=== PATIENT | female | born 1925 | race Caucasian/White ===

== ENCOUNTER 2017-06-09 13:55 | Inpatient (IN) | payer MEDICARE ==
[~2017-06-09] VITALS: Ht 157.5 cm; Wt 61.5 kg
[~2017-06-09 13:55] MED LIST: ASPI81TA44 PO; LISI10TA PO; LISI10TA2 PO
--- NOTE | 2017-06-09 14:36 | EKG ---
[facility] [address] [place] [address] Test Date: 2017-06-09 Test Time: 14:04:50 Pat Name: ALY LOUIS Department: Room: Gender: F Art Gilder: : 1925 Requested By: SUZETTE CARLOS Order Number: [id number] Reading MD: Kwame Moura MD Measurements Intervals Otis Rate: 77 P: 47 UT: 148 QRS: 34 QRSD: 100 T: 24 QT: 408 QTc: 464 Interpretive Statements SINUS RHYTHM Electronically Signed On 06-09-2017 16:08:17 RECORDING STUDIO SET UP WORKER by Kwame Moura MD
[2017-06-09 14:37] LABS: BASO # 0.1 x10^3/uL (0.0-0.2); BASO % 1 % (0-3); EOS % 0 % (0-3); HEMATOCRIT 40.9 % (36.0-47.0); HEMOGLOBIN 13.5 g/dL (12.0-15.5); LYMPH % 6 % (24-48); MEAN CORPUSCULAR HEMOGLOBIN 30 pg (25-35); MEAN CORPUSCULAR HGB CONC 33 g/dL (31-37); MEAN CORPUSCULAR VOLUME 90 fL (79-100); MONO % 6 % (0-9); NEUT % 87 % (31-73); PLATELET COUNT 244 x10^3/uL (140-400); RED BLOOD COUNT 4.56 x10^6/uL (3.50-5.40); RED CELL DISTRIBUTION WIDTH 14.1 % (11.5-14.5); WHITE BLOOD COUNT 15.3 x10^3/uL (4.0-11.0)
[2017-06-09 14:47] LABS: CALCIUM 8.9 mg/dL (8.5-10.1); CREATININE 0.9 mg/dL (0.6-1.0); POTASSIUM 3.2 mmol/L (3.5-5.1)
[2017-06-09 14:55] LABS: ALBUMIN 3.4 g/dL (3.4-5.0); ALBUMIN/GLOBULIN RATIO 0.8 (1.0-1.7); TOTAL BILIRUBIN 0.7 mg/dL (0.2-1.0); TOTAL PROTEIN 7.7 g/dL (6.4-8.2)
[2017-06-09 14:58] LABS: PLT ESTIMATE ADEQUATE (ADEQUATE)
[2017-06-09] MEDS ORDERED: CONTRAST GIVEN MC PRN (15:00)
[2017-06-09] MEDS ORDERED: IOHEXOL 300 MG/ML 100ML VIAL. IV ONE (15:00)
--- NOTE | 2017-06-09 15:03 | RAD ---
Portable chest, 06/09/2017: History: Chest pain The cardiac margins are poorly defined due to prominent epicardial fat pads and/or scarring. The heart appears to be at the upper limits of normal in size. The pulmonary vascularity is normal. There are linear basilar opacities compatible with atelectasis and/or scarring. The upper lung monique are clear. No definite pleural fluid is seen. IMPRESSION: 1. Mild cardiomegaly. 2. Mild bibasilar scarring and/or atelectasis.
--- NOTE | 2017-06-09 15:19 | PHYS DOC ---
Past Medical History Past Medical History: Depression, Hypertension Past Surgical History: Tonsillectomy, Other Additional Past Surgical Histo: LEFT BREAST BIOPSY, VERICOSE VEIN REMOVAL Additional Information: quit 40-50 years ago Alcohol Use: None Drug Use: None Adult General Chief Complaint Chief Complaint: CHEST PAIN HPI HPI Patient is a 89 year old F who presents with chest pain central nonradiating for the past day. Patient has no history of heart attack stents or bypass surgery. Patient states nothing increases or decreases the chest pain. Patient has history of hypertension with no history of smoking. Patient denies any shortness breath. Patient denies any nausea/vomiting/diarrhea. Review of Systems Review of Systems GEN: Denies fevers, chills, sweats HEENT: Denies blurred vision, sore throat CV: Chest pain RESP: Denies shortness of air, cough GI: Denies n/v/d NEURO: Denies confusion, dizziness MSK: Denies weakness, joint pain/swelling All other systems were reviewed and found to be within normal limits, except as documented in this note. Current Medications Current Medications Current Medications Medications (Trade) Dose Ordered Sig/Priscila Start Time Stop Time Status Last Admin Dose Admin Aspirin (Children'S Aspirin) 324 mg 1X ONCE 06/09/17 15:30 06/09/17 15:31 DC 06/09/17 15:36 324 MG Fentanyl Citrate (Fentanyl 2ml Vial) 50 mcg 1X ONCE 06/09/17 15:30 06/09/17 15:31 DC 06/09/17 15:37 50 MCG Info (Do NOT chart on this entry -- for MONITORING) 1 each PRN DAILY PRN 06/09/17 15:00 06/11/17 14:59 Iohexol (Omnipaque 300 Mg/ml) 75 ml 1X ONCE 06/09/17 15:00 06/09/17 15:01 DC 06/09/17 15:03 75 ML Morphine Sulfate 4 mg PRN Q2HR PRN 06/09/17 17:00 06/10/17 16:59 UNV Ondansetron HCl (Zofran) 4 mg PRN Q8HRS PRN 06/09/17 17:00 06/10/17 16:59 UNV Allergies Allergies Allergies Coded Allergies Type Severity Reaction Last Updated Verified No Known Drug Allergies 05/26/15 No Physical Exam Physical Exam GEN.: No apparent distress. Alert and oriented. HEENT: Head is normocephalic, atraumatic NECK: Supple. LUNGS: CTAB. HEART: RRR, S1, S2 present. Peripheral pulses intact ABDOMEN: Soft, nontender. Positive bowel sounds. EXTREMITIES: Without any cyanosis. NEUROLOGIC: Normal speech, normal tone PSYCHIATRIC: Normal affect, normal mood. SKIN: No ulcerations Current Patient Data Vital Signs Vital Signs Date Time Temp Pulse Resp B/P (MAP) Pulse Ox O2 Delivery O2 Flow Rate FiO2 06/09/17 16:25 70 20 113/56 (75) 93 Nasal Cannula 06/09/17 15:55 2.0 06/09/17 14:00 98.8 98.8 Lab Values Laboratory Tests Test 06/09/17 14:25 White Blood Count 15.3 x10^3/uL (4.0-11.0) H Red Blood Count 4.56 x10^6/uL (3.50-5.40) Hemoglobin 13.5 g/dL (12.0-15.5) Hematocrit 40.9 % (36.0-47.0) Mean Corpuscular Volume 90 fL (79-100) Mean Corpuscular Hemoglobin 30 pg (25-35) Mean Corpuscular Hemoglobin Concent 33 g/dL (31-37) Red Cell Distribution Width 14.1 % (11.5-14.5) Platelet Count 244 x10^3/uL (140-400) Neutrophils (%) (Auto) 87 % (31-73) H Lymphocytes (%) (Auto) 6 % (24-48) L Monocytes (%) (Auto) 6 % (0-9) Eosinophils (%) (Auto) 0 % (0-3) Basophils (%) (Auto) 1 % (0-3) Neutrophils # (Auto) 13.3 x10^3uL (1.8-7.7) H Lymphocytes # (Auto) 1.0 x10^3/uL (1.0-4.8) Monocytes # (Auto) 1.0 x10^3/uL (0.0-1.1) Eosinophils # (Auto) 0.0 x10^3/uL (0.0-0.7) Basophils # (Auto) 0.1 x10^3/uL (0.0-0.2) Segmented Neutrophils % 67 % (35-66) H Band Neutrophils % 19 % (0-9) H Lymphocytes % 3 % (24-48) L Atypical Lymphocytes % (Manual) 5 % (0-0) H Monocytes % 6 % (0-10) Platelet Estimate Adequate (ADEQUATE) Giant Platelets Few Sodium Level 138 mmol/L (136-145) Potassium Level 3.2 mmol/L (3.5-5.1) L Chloride Level 101 mmol/L (98-107) Carbon Dioxide Level 28 mmol/L (21-32) Anion Gap 9 (6-14) Blood Urea Nitrogen 26 mg/dL (7-20) H Creatinine 0.9 mg/dL (0.6-1.0) Estimated GFR (Cockcroft-Gault) 59.0 BUN/Creatinine Ratio 29 (6-20) H Glucose Level 151 mg/dL (70-99) H Calcium Level 8.9 mg/dL (8.5-10.1) Total Bilirubin 0.7 mg/dL (0.2-1.0) Aspartate Amino Transferase (AST) 14 U/L (15-37) L Alanine Aminotransferase (ALT) 17 U/L (14-59) Alkaline Phosphatase 79 U/L (46-116) Troponin I Quantitative < 0.017 ng/mL (0.000-0.055) Total Protein 7.7 g/dL (6.4-8.2) Albumin 3.4 g/dL (3.4-5.0) Albumin/Globulin Ratio 0.8 (1.0-1.7) L Laboratory Tests 06/09/17 14:25 Laboratory Tests 06/09/17 14:25 EKG EKG 1407: EKG shows normal sinus rhythm rate of 77 no STEMI[] Radiology/Procedures Radiology/Procedures Chest x-ray NAD CTA of the chest: Impression: 1. Nondiagnostic evaluation of the subsegmental pulmonary arteries due to motion. No central or major segmental pulmonary artery filling defect to suggest pulmonary embolism. 2. Moderate generalized cardiomegaly. 3. Mild T7 superior endplate compression deformity, age indeterminate though likely chronic without bony retropulsion. Correlation with point tenderness is recommended. 4. Small hiatal hernia. [] Course & Med Decision Making Course & Med Decision Making Pertinent Labs and Imaging studies reviewed. (See chart for details) ED course: Patient was seen and examined emergency room cardiac workup was ordered along with a CTA of the chest 1640: On reexamination patient still having centralized chest pain rating to her back therefore given her persistent chest pain will admit her to the hospital for further evaluation and management. 1650: Discussed CC/HP/PMH with Dr. Winter and recommends admit MDM: After reviewing the chart, CC/HPI/PMH, physical exam, [lab results], [ radiological results], I do not believe the patient having a STEMI, PE, thoracic aortic dissection however given the patient's age and persistent chest pain will admit the hospital for further evaluation and management. [] Dragon Disclaimer Dragon Disclaimer This electronic medical record was generated, in whole or in part, using a voice recognition dictation system. Departure Departure Impression: Primary Impression: Chest pain Disposition: ADMITTED INPATIENT Admitting Physician: Megaan Winter Condition: STABLE Referrals: MADELIN PICKENS Jr, MD (PCP) SUZETTE CARLOS DO Jun 09, 2017 15:19
[2017-06-09] MEDS ORDERED: fentaNYL PF VIAL 100 MCG/2 ML VIAL IV ONE (15:30)
[2017-06-09] MEDS ORDERED: ASPIRIN CHEWABLE 81 MG TABLET. PO ONE (15:30)
--- NOTE | 2017-06-09 16:05 | RAD ---
CTA chest 06/09/2017 Clinical indication: Chest pain. Technique: Multiple CTA images of the chest were obtained following the intravenous administration of 75 mL Omnipaque 300. PQRS Compliance Statement: One or more of the following individualized dose reduction techniques were utilized for this examination: 1. Automated exposure control 2. Adjustment of the mA and/or kV according to patient size 3. Use of iterative reconstruction technique Findings: CTA chest: There is moderate generalized cardiomegaly without significant pericardial effusion. The thoracic aorta is normal in caliber with mild scattered atheromatous disease. The subsegmental pulmonary arteries are nondiagnostic for evaluation due to motion. No central or major segmental pulmonary artery filling defect. No axillary, mediastinal or hilar lymphadenopathy. The central airways are patent. There is mild central perihilar bronchial thickening. There is mild linear atelectasis in the dependent lower lobes. No pleural effusion or pneumothorax. No suspicious noncalcified pulmonary nodules, however evaluation of the parenchyma is limited due to motion. There are no destructive osseous lesions. There is a mild T7 anterior superior compression deformity with no significant bony retropulsion. There is a right pericardial cystic structure measuring 3.8 x 1.9 cm series 3/image 71 may represent benign pericardial cyst or focal fluid in a pericardial recess. There is a loop recorder device in the subcutaneous tissues of the anterior left thorax. There is a small hiatal hernia. Limited images of the upper abdomen: 0.8 cm hypodensity at the hepatic dome, too small to characterize. Impression: 1. Nondiagnostic evaluation of the subsegmental pulmonary arteries due to motion. No central or major segmental pulmonary artery filling defect to suggest pulmonary embolism. 2. Moderate generalized cardiomegaly. 3. Mild T7 superior endplate compression deformity, age indeterminate though likely chronic without bony retropulsion. Correlation with point tenderness is recommended. 4. Small hiatal hernia.
[2017-06-09] MEDS ORDERED: MORPHINE SULFATE 4 MG/ML DISP.SYRIN. IV PRN (17:00)
[2017-06-09] MEDS ORDERED: NITROGLYCERIN SUBLINGUAL 0.4 MG BOTTLE OF 25. SL PRN (17:00)
[2017-06-09] MEDS ORDERED: ONDANSETRON PF 4 MG/2 ML VIAL. IV PRN (17:00)
[2017-06-09] MEDS ORDERED: ACETAMINOPHEN 325 MG TABLET. PO PRN (17:00)
[2017-06-09 18:23] VITALS: BP 131/60
[2017-06-09] MEDS ORDERED: DONE5TAB7 PO ×2 (18:27→18:30)
[2017-06-09] MEDS ORDERED: LISI1TAB3 PO (18:27)
[2017-06-09] MEDS ORDERED: ESCITALOPRAM OXA5 M1 PO (18:27)
[2017-06-09] MEDS ORDERED: guaiFENesin DM 200MG/20MG 10 ML SYRUP PO PRN (18:30)
--- NOTE | 2017-06-09 18:35 | PDOC1 ---
History and Physical Date of Admission Date of Admission DATE: 06/09/17 TIME: 18:28 Identification/Chief Complaint Chief Complaint chest pain Problems: Source Source: Caregiver, Chart review, Patient History of Present Illness History of Present Illness Patient is a 89 year old admit w/ acute chest pain central nonradiating for the past day. She tells me she has seen Dr. Shelton before, and has and inplanted device for CV monitoring,/ No fever or chills or sweats or cough, no travel Patient has history of hypertension with no history of smoking. Patient denies any shortness breath. Patient denies any nausea/vomiting/diarrhea. her on hospice a few weeks ago, and she feels like she has been under a lot of stress. Past Medical History Cardiovascular: HTN Hepatobiliary: Cirrhosis Psych: Depression Musculoskeletal: low back pain Past Surgical History Past Surgical History: Other Family History Family History: No Significant Social History Smoke: No ALCOHOL: none Drugs: None Current Problem List Problem List Problems Medical Problems: (1) Chest pain Status: Acute Problems: Current Medications Current Medications Current Medications Iohexol (Omnipaque 300 Mg/ml) 75 ml 1X ONCE IV Last administered on 15:03; Start 06/09/17 at 15:00; Stop 06/09/17 at 15:01; Status DC Info (Do NOT chart on this entry -- for MONITORING) 1 each PRN DAILY PRN MC SEE COMMENTS; Start 06/09/17 at 15:00; Stop 06/11/17 at 14:59 Aspirin (Children'S Aspirin) 324 mg 1X ONCE PO Last administered on 15:36; Start 06/09/17 at 15:30; Stop 06/09/17 at 15:31; Status DC Fentanyl Citrate (Fentanyl 2ml Vial) 50 mcg 1X ONCE IV Last administered on 15:37; Start 06/09/17 at 15:30; Stop 06/09/17 at 15:31; Status DC Ondansetron HCl (Zofran) 4 mg PRN Q8HRS PRN IV NAUSEA/VOMITING; Start at 17:00; Stop 06/10/17 at 16:59 Morphine Sulfate 4 mg PRN Q2HR PRN IV PAIN; Start 06/09/17 at 17:00; Stop at 16:59 Acetaminophen (Tylenol) 650 mg PRN Q4HRS PRN PO FEVER; Start 06/09/17 at 17:00 ; Stop 06/10/17 at 16:59 Nitroglycerin (Nitrostat) 0.4 mg PRN Q5MIN PRN SL CHEST PAIN; Start 06/09/17 at 17:00; Stop 06/10/17 at 16:59 Active Scripts Active Reported Lisinopril-Hctz 10-12.5 Mg Tab (Lisinopril/Hydrochlorothiazide) 1 Each Tablet 1 Tab PO DAILY Donepezil Hcl 5 Mg Tablet 1 Tab PO DAILY Escitalopram Oxalate 5 Mg Tablet 5 Mg PO DAILY Allergies Allergies: Coded Allergies: No Known Drug Allergies (Unverified , 05/26/15) ROS General: YES: Fatigue, Malaise, No: Chills, Night Sweats, Appetite, Other PSYCHOLOGICAL ROS: YES: Depression, Irritablity, Memory difficulties, Sleep disturbances Eyes: No Blurry vision, No Decreased vision, No Double vision, No Dry eyes, No Excessive tearing, No Eye Pain, No Itchy Eyes, No Loss of vision, No Photophobia , No Scotomata, No Uses contacts, No Uses glasses, No Other HEENT: No: Heacaches, Visual Changes, Hearing change, Nasal congestion, Nasal discharge, Oral lesions, Sinus pain, Sore Throat, Epistaxis, Sneezing, Snoring, Tinnitus, Vertigo, Vocal changes, Other Respiratory: YES: Pleuritic Pain, No: Cough, Hemoptysis, Orthopnea, Shortness of breath, SOB with excertion, Sputum Changes, Stridor, Tachypnea, Wheezing, Other Cardiovascular: yes Chest Pain, No Palpitations, No Orthopnea, No Paroxysmal Noc. Dyspnea, No Edema, No Lt Headedness, No Other Gastrointestinal: No Nausea, No Vomiting, No Abdominal Pain, No Diarrhea, No Constipation, No Melena, No Hematochezia, No Other Genitourinary: No Dysuria, No Frequency, No Incontinence, No Hematuria, No Retention, No Discharge, No Urgency, No Pain, No Flank Pain, No Other, No , No , No , No , No , No , No Musculoskeletal: Yes Joint Stiffness, No Gait Disturbance, No Joint Pain, No Joint Swelling, No Muscle Pain, No Muscular Weakness, No Pain In:, No Swelling In:, No Other Neurological: No Behavorial Changes, No Bowel/Bladder ControlChng, No Confusion , No Dizziness, No Gait Disturbance, No Headaches, No Impaired Coord/balance, No Memory Loss, No Numbness/Tingling, No Seizures, No Speech Problems, No Tremors, No Visual Changes, No Weakness, No Other Skin: Yes Dry Skin, No Eczema, No Hair Changes, No Lumps, No Mole Changes, No Mottling, No Nail Changes, No Pruritus, No Rash, No Skin Lesion Changes, No Other, No Acne Physical Exam General: Alert, No acute distress HEENT: PERRLA Lungs: Clear to auscultation, Normal air movement Heart: no gallops Abdomen: Normal bowel sounds, Soft Rectal Exam: not examined Extremities: No cyanosis, No edema Skin: No rashes Neuro: Normal tone, Sensation intact, Cranial nerves 3-12 NL Psych/Mental Status: Mood NL Vitals Vitals Vital Signs Date Time Temp Pulse Resp B/P (MAP) Pulse Ox O2 Delivery O2 Flow Rate FiO2 06/09/17 18:23 98.2 81 18 131/60 (83) 96 Room Air 98.2 06/09/17 18:17 2.0 Labs Labs Laboratory Tests Test 06/09/17 14:25 White Blood Count 15.3 x10^3/uL (4.0-11.0) Red Blood Count 4.56 x10^6/uL (3.50-5.40) Hemoglobin 13.5 g/dL (12.0-15.5) Hematocrit 40.9 % (36.0-47.0) Mean Corpuscular Volume 90 fL (79-100) Mean Corpuscular Hemoglobin 30 pg (25-35) Mean Corpuscular Hemoglobin Concent 33 g/dL (31-37) Red Cell Distribution Width 14.1 % (11.5-14.5) Platelet Count 244 x10^3/uL (140-400) Neutrophils (%) (Auto) 87 % (31-73) Lymphocytes (%) (Auto) 6 % (24-48) Monocytes (%) (Auto) 6 % (0-9) Eosinophils (%) (Auto) 0 % (0-3) Basophils (%) (Auto) 1 % (0-3) Neutrophils # (Auto) 13.3 x10^3uL (1.8-7.7) Lymphocytes # (Auto) 1.0 x10^3/uL (1.0-4.8) Monocytes # (Auto) 1.0 x10^3/uL (0.0-1.1) Eosinophils # (Auto) 0.0 x10^3/uL (0.0-0.7) Basophils # (Auto) 0.1 x10^3/uL (0.0-0.2) Segmented Neutrophils % 67 % (35-66) Band Neutrophils % 19 % (0-9) Lymphocytes % 3 % (24-48) Atypical Lymphocytes % (Manual) 5 % (0-0) Monocytes % 6 % (0-10) Platelet Estimate Adequate (ADEQUATE) Giant Platelets Few Sodium Level 138 mmol/L (136-145) Potassium Level 3.2 mmol/L (3.5-5.1) Chloride Level 101 mmol/L (98-107) Carbon Dioxide Level 28 mmol/L (21-32) Anion Gap 9 (6-14) Blood Urea Nitrogen 26 mg/dL (7-20) Creatinine 0.9 mg/dL (0.6-1.0) Estimated GFR (Cockcroft-Gault) 59.0 BUN/Creatinine Ratio 29 (6-20) Glucose Level 151 mg/dL (70-99) Calcium Level 8.9 mg/dL (8.5-10.1) Total Bilirubin 0.7 mg/dL (0.2-1.0) Aspartate Amino Transf (AST/SGOT) 14 U/L (15-37) Alanine Aminotransferase (ALT/SGPT) 17 U/L (14-59) Alkaline Phosphatase 79 U/L (46-116) Troponin I Quantitative < 0.017 ng/mL (0.000-0.055) Total Protein 7.7 g/dL (6.4-8.2) Albumin 3.4 g/dL (3.4-5.0) Albumin/Globulin Ratio 0.8 (1.0-1.7) Laboratory Tests Test 06/09/17 14:25 White Blood Count 15.3 x10^3/uL (4.0-11.0) Red Blood Count 4.56 x10^6/uL (3.50-5.40) Hemoglobin 13.5 g/dL (12.0-15.5) Hematocrit 40.9 % (36.0-47.0) Mean Corpuscular Volume 90 fL (79-100) Mean Corpuscular Hemoglobin 30 pg (25-35) Mean Corpuscular Hemoglobin Concent 33 g/dL (31-37) Red Cell Distribution Width 14.1 % (11.5-14.5) Platelet Count 244 x10^3/uL (140-400) Neutrophils (%) (Auto) 87 % (31-73) Lymphocytes (%) (Auto) 6 % (24-48) Monocytes (%) (Auto) 6 % (0-9) Eosinophils (%) (Auto) 0 % (0-3) Basophils (%) (Auto) 1 % (0-3) Neutrophils # (Auto) 13.3 x10^3uL (1.8-7.7) Lymphocytes # (Auto) 1.0 x10^3/uL (1.0-4.8) Monocytes # (Auto) 1.0 x10^3/uL (0.0-1.1) Eosinophils # (Auto) 0.0 x10^3/uL (0.0-0.7) Basophils # (Auto) 0.1 x10^3/uL (0.0-0.2) Segmented Neutrophils % 67 % (35-66) Band Neutrophils % 19 % (0-9) Lymphocytes % 3 % (24-48) Atypical Lymphocytes % (Manual) 5 % (0-0) Monocytes % 6 % (0-10) Platelet Estimate Adequate (ADEQUATE) Giant Platelets Few Sodium Level 138 mmol/L (136-145) Potassium Level 3.2 mmol/L (3.5-5.1) Chloride Level 101 mmol/L (98-107) Carbon Dioxide Level 28 mmol/L (21-32) Anion Gap 9 (6-14) Blood Urea Nitrogen 26 mg/dL (7-20) Creatinine 0.9 mg/dL (0.6-1.0) Estimated GFR (Cockcroft-Gault) 59.0 BUN/Creatinine Ratio 29 (6-20) Glucose Level 151 mg/dL (70-99) Calcium Level 8.9 mg/dL (8.5-10.1) Total Bilirubin 0.7 mg/dL (0.2-1.0) Aspartate Amino Transf (AST/SGOT) 14 U/L (15-37) Alanine Aminotransferase (ALT/SGPT) 17 U/L (14-59) Alkaline Phosphatase 79 U/L (46-116) Troponin I Quantitative < 0.017 ng/mL (0.000-0.055) Total Protein 7.7 g/dL (6.4-8.2) Albumin 3.4 g/dL (3.4-5.0) Albumin/Globulin Ratio 0.8 (1.0-1.7) VTE Prophylaxis Ordered VTE Prophylaxis Devices: Yes VTE Pharmacological Prophylaxi: No Assessment/Plan Assessment/Plan chest pain, pleuritic on my exam, from front of chest to back, consult PULM hypoxia, consult PULM, no PNA start Nebs, supportive care CAD, prior CHF, possible chronic diastolic CHF, consult CV, hold BP meds for relative hypotension leukocytosis, NOS hypokalemia, replace, admit from ER CAMILLE ANNA MD Jun 09, 2017 18:35
[2017-06-09] MEDS ORDERED: POTASSIUM CHLORIDE 20 MEQ TABLET.ER. PO ONE (19:00)
[2017-06-09 19:35] VITALS: BP 86/42
[2017-06-09] MEDS: IPRATRPIUM/ALBUTEROL 0.5/2.5MG 3 ML NEBU. NEB SCH (20:01)
[2017-06-09] MEDS ORDERED: DONEPEZIL HCL 5 MG TABLET. PO SCH (21:00)
[2017-06-09 23:32] VITALS: BP 106/67
[2017-06-10 03:35] VITALS: BP 129/60
[2017-06-10 05:34] LABS: BASO % 0 % (0-3); EOS % 0 % (0-3); HEMATOCRIT 37.9 % (36.0-47.0); HEMOGLOBIN 12.3 g/dL (12.0-15.5); LYMPH # 1.5 x10^3/uL (1.0-4.8); LYMPH % 13 % (24-48); MEAN CORPUSCULAR HEMOGLOBIN 29 pg (25-35); MEAN CORPUSCULAR HGB CONC 33 g/dL (31-37); MEAN CORPUSCULAR VOLUME 91 fL (79-100); MONO % 7 % (0-9); NEUT % 81 % (31-73); PLATELET COUNT 209 x10^3/uL (140-400); RED BLOOD COUNT 4.19 x10^6/uL (3.50-5.40); RED CELL DISTRIBUTION WIDTH 14.4 % (11.5-14.5); WHITE BLOOD COUNT 11.7 x10^3/uL (4.0-11.0)
[2017-06-10 06:08] LABS: CALCIUM 8.8 mg/dL (8.5-10.1); CREATININE 0.9 mg/dL (0.6-1.0); POTASSIUM 3.3 mmol/L (3.5-5.1)
[2017-06-10 07:00] VITALS: BP 109/56
[2017-06-10] MEDS: IPRATRPIUM/ALBUTEROL 0.5/2.5MG 3 ML NEBU. NEB SCH ×2 (07:17→11:03)
[2017-06-10] MEDS ORDERED: CITALOPRAM 10 MG TABLET. PO SCH (09:00)
--- NOTE | 2017-06-10 09:50 | PDOC2 ---
MERCED REYES TOOLING MANAGER 06/10/17 0950: CARDIAC CONSULT DATE OF CONSULT Date of Consult DATE: 06/10/17 TIME: 09:47 REASON FOR CONSULT Reason for Consult: Chest Pain REFERRING PHYSICIAN Referring Physician: Dr. Ortiz SOURCE Source: Chart review, Patient HISTORY OF PRESENT ILLNESS HISTORY OF PRESENT ILLNESS This is a 89 yo female who presented with complaints of chest pain. Patient report pain began upon awakening yesterday morning. Located in her central chest. Describes as aching. Worsened with deep breathing and by pressing on the chest. No associated dizziness, diaphoresis, palpitations, SOA, WHARTON, nausea/ vomiting, or fevers/illness. Also having neck and shoulder pain. Has had increased stress as she has been caring for her at home; he passed about a month ago. No prior history of CAD. Does have LINQ implant following ischemic stroke. Recent device check shows no AFIB. PAST MEDICAL HISTORY Cardiovascular: HTN, Hyperlipidemia CENTRAL NERVOUS SYSTEM: CVA (ischemic ) GI: No pertinent hx Heme/Onc: No pertinent hx Hepatobiliary: No pertinent hx Psych: Depression Musculoskeletal: Osteoarthritis Rheumatologic: No pertinent hx Infectious disease: No pertinent hx ENT: No pertinent hx Renal/: No pertinent hx Endocrine: No pertinent hx Dermatology: No pertinent hx PAST SURGICAL HISTORY Past Surgical History: No pertinent history FAMILY HISTORY Family History: Diabetes SOCIAL HISTORY Smoke: No ALCOHOL: none Drugs: None Lives: Alone CURRENT MEDICATIONS CURRENT MEDICATIONS Current Medications Medications (Trade) Dose Ordered Sig/Priscila Route PRN Reason Start Time Stop Time Status Last Admin Dose Admin Iohexol (Omnipaque 300 Mg/ml) 75 ml 1X ONCE IV 06/09/17 15:00 06/09/17 15:01 DC 06/09/17 15:03 Aspirin (Children'S Aspirin) 324 mg 1X ONCE PO 06/09/17 15:30 06/09/17 15:31 DC 06/09/17 15:36 Fentanyl Citrate (Fentanyl 2ml Vial) 50 mcg 1X ONCE IV 06/09/17 15:30 06/09/17 15:31 DC 06/09/17 15:37 Albuterol/ Ipratropium (Duoneb) 3 ml RTQID NEB 06/09/17 20:00 06/10/17 07:17 Potassium Chloride (Klor-Con) 40 meq 1X ONCE PO 06/09/17 19:00 06/09/17 19:01 DC 06/09/17 20:19 Donepezil HCl (Aricept) 5 mg HS PO 06/09/17 21:00 06/09/17 20:19 ALLERGIES ALLERGIES: Coded Allergies: No Known Drug Allergies (Unverified , 05/26/15) ROS Review of System 14 point ROS conducted with pertinent positives noted above in HPI. PHYSICAL EXAM General: Alert, Oriented X3, Cooperative, No acute distress HEENT: Atraumatic, Mucous membr. moist/pink Lungs: Clear to auscultation, Normal air movement Heart: Regular rate, Normal S1, Normal S2, Other (chest tenderness upon palpation) Abdomen: Soft, No tenderness Extremities: No edema, Normal pulses Skin: No breakdown, No significant lesion Neuro: Normal speech, Sensation intact Psych/Mental Status: Mental status NL, Mood NL MUSCULOSKELETAL: Osteoarthritic changes both hands VITALS VITALS Vital Signs Date Time Temp Pulse Resp B/P (MAP) Pulse Ox O2 Delivery O2 Flow Rate FiO2 06/10/17 07:18 97 Nasal Cannula 2.0 06/10/17 07:00 98.2 87 19 109/56 (73) 98.2 LABS Lab: Laboratory Tests Test 06/09/17 14:25 06/09/17 22:20 06/10/17 04:45 White Blood Count 15.3 x10^3/uL (4.0-11.0) 11.7 x10^3/uL (4.0-11.0) Red Blood Count 4.56 x10^6/uL (3.50-5.40) 4.19 x10^6/uL (3.50-5.40) Hemoglobin 13.5 g/dL (12.0-15.5) 12.3 g/dL (12.0-15.5) Hematocrit 40.9 % (36.0-47.0) 37.9 % (36.0-47.0) Mean Corpuscular Volume 90 fL (79-100) 91 fL (79-100) Mean Corpuscular Hemoglobin 30 pg (25-35) 29 pg (25-35) Mean Corpuscular Hemoglobin Concent 33 g/dL (31-37) 33 g/dL (31-37) Red Cell Distribution Width 14.1 % (11.5-14.5) 14.4 % (11.5-14.5) Platelet Count 244 x10^3/uL (140-400) 209 x10^3/uL (140-400) Neutrophils (%) (Auto) 87 % (31-73) 81 % (31-73) Lymphocytes (%) (Auto) 6 % (24-48) 13 % (24-48) Monocytes (%) (Auto) 6 % (0-9) 7 % (0-9) Eosinophils (%) (Auto) 0 % (0-3) 0 % (0-3) Basophils (%) (Auto) 1 % (0-3) 0 % (0-3) Neutrophils # (Auto) 13.3 x10^3uL (1.8-7.7) 9.4 x10^3uL (1.8-7.7) Lymphocytes # (Auto) 1.0 x10^3/uL (1.0-4.8) 1.5 x10^3/uL (1.0-4.8) Monocytes # (Auto) 1.0 x10^3/uL (0.0-1.1) 0.8 x10^3/uL (0.0-1.1) Eosinophils # (Auto) 0.0 x10^3/uL (0.0-0.7) 0.0 x10^3/uL (0.0-0.7) Basophils # (Auto) 0.1 x10^3/uL (0.0-0.2) 0.0 x10^3/uL (0.0-0.2) Segmented Neutrophils % 67 % (35-66) Band Neutrophils % 19 % (0-9) Lymphocytes % 3 % (24-48) Atypical Lymphocytes % (Manual) 5 % (0-0) Monocytes % 6 % (0-10) Platelet Estimate Adequate (ADEQUATE) Giant Platelets Few Sodium Level 138 mmol/L (136-145) 142 mmol/L (136-145) Potassium Level 3.2 mmol/L (3.5-5.1) 3.3 mmol/L (3.5-5.1) Chloride Level 101 mmol/L (98-107) 103 mmol/L (98-107) Carbon Dioxide Level 28 mmol/L (21-32) 25 mmol/L (21-32) Anion Gap 9 (6-14) 14 (6-14) Blood Urea Nitrogen 26 mg/dL (7-20) 27 mg/dL (7-20) Creatinine 0.9 mg/dL (0.6-1.0) 0.9 mg/dL (0.6-1.0) Estimated GFR (Cockcroft-Gault) 59.0 59.0 BUN/Creatinine Ratio 29 (6-20) Glucose Level 151 mg/dL (70-99) 163 mg/dL (70-99) Calcium Level 8.9 mg/dL (8.5-10.1) 8.8 mg/dL (8.5-10.1) Total Bilirubin 0.7 mg/dL (0.2-1.0) Aspartate Amino Transf (AST/SGOT) 14 U/L (15-37) Alanine Aminotransferase (ALT/SGPT) 17 U/L (14-59) Alkaline Phosphatase 79 U/L (46-116) Troponin I Quantitative < 0.017 ng/mL (0.000-0.055) < 0.017 ng/mL (0.000-0.055) < 0.017 ng/mL (0.000-0.055) Total Protein 7.7 g/dL (6.4-8.2) Albumin 3.4 g/dL (3.4-5.0) Albumin/Globulin Ratio 0.8 (1.0-1.7) ECHOCARDIOGRAM ECHOCARDIOGRAM <Conclusion> The left ventricle is normal size. The left ventricular systolic function is normal and the ejection fraction is within normal range. Ejection fraction is 55-60%. The interatrial septum is intact with no evidence for an atrial septal defect or patent foramen ovale as noted on 2-D or Doppler imaging. There is no significant aortic valvular stenosis. Doppler and Color Flow revealed moderate aortic regurgitation. Doppler and Color Flow revealed trace to mild mitral regurgitation. Doppler and Color Flow revealed moderate tricuspid regurgitation. The PA pressure was estimated at 34 mmHg. There is no evidence of significant pericardial effusion. DATE: 05/28/15 1017 ASSESSMENT/PLAN ASSESSMENT/PLAN 1. Chest pain, atypical; most probably MSK in origin. troponin series normal- AMI ruled out. EKG without significant changes as compared to study 05/27/15. 2. Hypertension; controlled 3. Hyperlipidemia 4. Hypokalemia; replaced 5. H/o ischemia stroke; recent LINQ interrogation reveals no AFIB. Recommendations check lipids Given risk factors, will obtain echo to assess LV function/presence of WMA Resume ASA and lisinopril. If echo WNL, may discharge from a CV standpoint and f/u in our office in 4 weeks. Problems: GIULIANO CHRISTINA MD 06/10/17 1343: CARDIAC CONSULT ALLERGIES ALLERGIES: Coded Allergies: No Known Drug Allergies (Unverified , 05/26/15) ASSESSMENT/PLAN ASSESSMENT/PLAN Patient seen and examined. Agree with BENCH HAND MACHINE's assessment and plan. Chest pain with atypical features and most probably musculoskeletal. Myocardial infarction ruled out. 2-D echo showed normal LV function without any wall motion abnormalities. Okay for discharge from cardiac standpoint. Thank you for your consultation. Problems: MERCED REYES APRN Jun 10, 2017 09:50 GIULIANO CHRISTINA MD Jun 10, 2017 13:43
--- NOTE | 2017-06-10 10:09 | CARD ---
APPROVED REPORT EXAM: Two-dimensional and M-mode echocardiogram with Doppler and color Doppler. Other Information Quality : Good INDICATION Chest Pain Cardiomegaly 2D DIMENSIONS RVDd2.4 (2.9-3.5cm)Left Atrium(2D)3.8 (1.6-4.0cm) IVSd1.0 (0.7-1.1cm)Aortic Root(2D)2.9 (2.0-3.7cm) LVDd5.0 (3.9-5.9cm)LVOT Diameter2.0 (1.8-2.4cm) PWd1.0 (0.7-1.1cm)LVDs3.5 (2.5-4.0cm) FS (%) 29.4 %SV66.4 ml LVEF(%)56.0 (>50%) Aortic Valve AoV Peak Minor.177.2cm/sAoV VTI35.6cm AO Peak GR.12.6mmHgLVOT Peak Minor.97.3cm/s LVOT VTI 19.12cmAO Mean GR.7mmHg NASREEN (VMAX)1.72eh5TTU (VTI)1.70cm2 AI P 1/2 Xqfk570ji Mitral Valve MV E Atcyhhbh74.3cm/sMV DECEL [id number] MV A Ouyzslkv22.3cm/sMV XAW74av E/A Ratio0.6MVA (PHT)3.59cm2 TDI E/Lateral E'7.5E/Medial E'9.1 Tricuspid Valve TR P. Gucxnmoh493pe/sRAP ETJHXXDN5qeAx TR Peak Gr.94zbNyWSYB37nuTo Pulmonary Vein S1 Bggbetpa89.8cm/sD2 Mcbxjkgg74.5cm/s PVa qasgkyas833qyou LEFT VENTRICLE The left ventricle is normal size. There is normal left ventricular wall thickness. The left ventricu lar systolic function is normal and the ejection fraction is within normal range. The Ejection Fracti on is 55-60%. There is normal LV segmental wall motion. Transmitral Doppler flow pattern is Grade I-a bnormal relaxation pattern. RIGHT VENTRICLE The right ventricle is mildly dilated. The right ventricular systolic function is normal. ATRIA The left atrium size is normal. The right atrium is mildly dilated. The interatrial septum is intact with no evidence for an atrial septal defect or patent foramen ovale as noted on 2-D or Doppler imagi ng. AORTIC VALVE The aortic valve is calcified and displays decreased opening. Doppler and Color Flow revealed mild ao rtic regurgitation. There is no significant aortic valvular stenosis. MITRAL VALVE The mitral valve is normal in structure and function. There is no evidence of mitral valve prolapse. There is no mitral valve stenosis. Doppler and Color-flow revealed mild mitral regurgitation. TRICUSPID VALVE The tricuspid valve is normal in structure and function. Doppler and Color Flow revealed mild tricusp id regurgitation.There is mild pulmonary hypertension. The PA pressure was estimated at 36 mmHg. Ther e is no tricuspid valve stenosis. PULMONIC VALVE Doppler and Color Flow revealed trace pulmonic valvular regurgitation. There is no pulmonic valvular stenosis. GREAT VESSELS The aortic root is normal in size. The ascending aorta is normal in size. The IVC is normal in size a nd collapses >50% with inspiration. PERICARDIAL EFFUSION There is no evidence of significant pericardial effusion. Critical Notification Critical Value: No <Conclusion> The left ventricular systolic function is normal and the ejection fraction is within normal range. Th e Ejection Fraction is 55-60%. There is normal LV segmental wall motion. Doppler and Color Flow revealed mild aortic regurgitation. Doppler and Color Flow revealed mild tricuspid regurgitation.There is mild pulmonary hypertension. Th e PA pressure was estimated at 36 mmHg.
--- NOTE | 2017-06-10 10:49 | CONS ---
DATE OF CONSULTATION: ATTENDING PHYSICIAN: Meagan Winter. REASON FOR CONSULTATION: Chest pain. HISTORY OF PRESENT ILLNESS: The patient is an 89-year-old female who has no significant history of tobacco use or any chronic pulmonary conditions. She was having some pain in the left side of the chest and also going to the back. The patient also says she was having lot of belching and bloating as well. She had no leg edema. No history of DVT. No cough, fever or chills. She was seen in the Emergency Room and a CT angiogram was performed. It was not the best study, but there was no central pulmonary emboli. It was nondiagnostic for subsegmental pulmonary emboli. She had generalized cardiomegaly and small hiatal hernia and mild T7 compression deformity. I have been asked to see her for further evaluation. PAST MEDICAL HISTORY: Significant for history of hypertension, cirrhosis, depression, low back pain. PAST SURGICAL HISTORY: No recent surgery. ALLERGIES: None. MEDICATIONS: Reviewed as listed in the MRAD including DuoNeb. REVIEW OF SYSTEMS: Twelve-point system obtained. Pertinent positives discussed in my history of present illness, otherwise noncontributory. All systems that were negative were reviewed as well. SOCIAL HISTORY: Quit tobacco 40 years ago. FAMILY HISTORY: Noncontributory to lungs. PHYSICAL EXAMINATION: VITAL SIGNS: Stable, afebrile, pulse ox 97% now on room air. HEENT: Sclerae nonicteric. NECK: Supple. LUNGS: Clear. CARDIOVASCULAR: Regular rate and rhythm. ABDOMEN: Soft. EXTREMITIES: With no pitting edema. LABORATORY DATA: Reviewed. BUN is 27, creatinine 0.9, white cell count 11.7. IMPRESSION: 1. Chest pain appears to be atypical. It is somewhat reproducible and also has been associated belching and bloating. The CT angiogram does not reveal any definite central pulmonary emboli. We will await for Cardiology input. 2. No significant history of tobacco use. 3. History of cirrhosis. RECOMMENDATIONS: 1. From a pulmonary standpoint, I do not see any additional workup. 2. Follow cardiology recommendations. 3. Consider adding PPI as symptoms could be related to GI. 4. Discussed with family and will follow along with you. DONOVAN LOPEZ MD DR: RADHA/ken JOB#: [id number] / [id number]
[2017-06-10 10:57] LABS: CHOLESTEROL/HDL RATIO 2.2
[2017-06-10 11:00] VITALS: BP 115/64
[2017-06-10] MEDS ORDERED: ASPIRIN ENTERIC COATED 81 MG TABLET.DR. PO SCH (13:00)
--- NOTE | 2017-06-13 04:03 | CONS ---
DATE OF CONSULTATION: 06/10/2017 ATTENDING PHYSICIAN: Dr. Winter. REASON FOR CONSULTATION: The patient was seen at the request of Dr. Winter for rehab evaluation. HISTORY OF PRESENT ILLNESS: This is an 89-year-old right-handed female admitted through the Emergency Room on 06/09/2017 with sudden onset of chest wall and upper back area pain without any specific injury or accident. She denies any shortness of breath. The patient with known hypertension. She took care of her who is in a wheelchair, pushing the wheelchair around until he about a month ago; right now, she lives alone, had steps to manage and she is physically active taking care of her house, but denies any specific injury that caused her discomfort. Since admission, she was ruled out for any acute ME or any pulmonary embolism. PAST MEDICAL HISTORY: Also includes cirrhosis of liver, depression, lower back pain. The patient is status post LINQ implant following ischemic stroke, recent device check shows no atrial fibrillation. ALLERGIES: The patient is not known allergic to any medication. FAMILY HISTORY: Diabetes mellitus. PHYSICAL EXAMINATION: Today revealed an elderly female. She is alert, cooperative during the examination, in no acute distress. She had tenderness to palpation over lower ribcage attachment to sternum area bilaterally and also over posterior shoulder girdle muscles, especially on the right side. She had exaggerated upper thoracic kyphotic deformity and she keeps her neck somewhat bend forward when she is up. She had no significant pain on range of motion of her cervical spine, but some pain on thoracic spine range of motion. No tenderness to palpation over thoracic spine or lumbar spine itself. She had clinical evidence of degenerative changes of thumb carpometacarpal joints in both hands and also some muscle atrophy involving hand intrinsic muscles, especially of thenar eminence muscles and crepitus on range of motion of both knee joints without any obvious knee joint effusion. She had 5/5 grade muscle strength in her upper and lower extremities, maybe relative weakness of posterior shoulder girdle muscles. Deep tendon reflexes are and symmetrical on the right side, absent at both ankles and slightly exaggerated at left knee. She had equal perception of touch and pinprick sensation bilaterally. She is independent with bed mobility, transfers and walking without any loss of balance. Her oxygen saturation on room air after she walked is 93%. ASSESSMENT: The patient with sprain involving sternocostal junction of lower ribs bilaterally and also posterior shoulder girdle muscle strain, especially on the right side. No clinical evidence of cervical radiculopathy, clinical evidence of peripheral neuropathy and degenerative joint disease of her knees without any significant pain and degenerative changes in the thumb carpometacarpal joints of both hands. RECOMMENDATIONS: I have instructed her in a home program of physical modalities, trigger point massage and relax stretching exercise to her posterior shoulder girdle muscles and physical modalities to her anterior chest wall and deep breathing exercises and to consider referral to physical therapy to help ease her pain if the pain persists as she will be going [facility] [place] [facility]. I have not arranged for outpatient therapy at present time. Home when medically stable. Dr. Winter, I appreciate asking me to participate in the care of this interesting patient. I will be glad to follow her with you as needed for her rehabilitation. NAVEEN LEE MD DR: JONATHAN/ken JOB#: [id number] / [id number] MADELIN Robb MD
== END 2017-06-10 13:25 | disposition home or self-care (01) | DRG 205 ==
LOC: ER 13:55 → 2 SOUTH 17:26
PROVIDERS: ADMIT Internal Medicine; ATTEND Internal Medicine
DX: M94.0 Chondrocostal junction syndrome [Tietze] (principal); J96.00 Acute respiratory failure, unspecified whether with hypoxia or hypercapnia; I11.9 Hypertensive heart disease without heart failure; K74.60 Unspecified cirrhosis of liver; D72.829 Elevated white blood cell count, unspecified; I25.10 Atherosclerotic heart disease of native coronary artery without angina pectoris; E78.5 Hyperlipidemia, unspecified; E87.6 Hypokalemia; K44.9 Diaphragmatic hernia without obstruction or gangrene; M19.90 Unspecified osteoarthritis, unspecified site; F32.9 Major depressive disorder, single episode, unspecified; R09.02 Hypoxemia; Z83.3 Family history of diabetes mellitus; Z86.73 Personal history of transient ischemic attack (TIA), and cerebral infarction without residual deficits; Z87.891 Personal history of nicotine dependence
CPT/HCPCS: 36415; 71010; 71275; 80048; 80053; 80061; 84484; 85007; 85025; 93005; 93306; 94250; 94640; 94760; 96374; J3010; J7620; Q9967; 99285-25